=== PATIENT | female | born 1955 | race Caucasian/White ===

== ENCOUNTER 2022-11-01 20:20 | Emergency (ER) | payer BC ==
[2022-11-01] MEDS ORDERED: Naloxone 0.4 MG/ML SDV IVPUSH PRN (20:36)
[2022-11-01] MEDS: Lidocaine 4% 1 each Patch TOP ONE (20:38)
[2022-11-01] MEDS: Sodium Chloride 0.9% 10 ML Syringe FLUSH PRN (20:39)
[2022-11-01] MEDS: Morphine 2 MG/ML SYRINGE IVPUSH ONE (20:39)
[2022-11-01] MEDS: Ondansetron 4 MG/2 ML SDV IVPUSH ONE (20:39)
[2022-11-01] MEDS: Sodium Chloride 0.9% 2.5 ML Syringe FLUSH PRN (20:39)
[2022-11-01 21:00] LABS: BASOPHILS PERCENT AUTO 0.4 % (0.0-1.5); EOSINOPHILS ABSOLUTE AUTO 0.1 K/uL (0.0-0.7); EOSINOPHILS PERCENT AUTO 1.4 % (0.0-7.0); HEMOGLOBIN 12.1 g/dL (12.0-16.0); LYMPHOCYTES ABSOLUTE AUTO 1.9 K/uL (0.6-2.4); MEAN CORPUSCULAR HEMOGLOBIN 27.2 pg (27.0-32.0); MEAN CORPUSCULAR HGB CONC 31.8 g/dL (31.0-37.0); MEAN CORPUSCULAR VOLUME 85.4 fL (80.0-98.0); MONOCYTES ABSOLUTE AUTO 0.4 K/uL (0.0-0.8); MONOCYTES PERCENT AUTO 6.7 % (0.0-15.0); NEUTROPHILS ABSOLUTE AUTO 3.3 K/uL (1.4-5.7); NEUTROPHILS PERCENT AUTO 58.5 % (48.0-80.0); NRBC ABSOLUTE 0 K/uL; PLATELET COUNT,PLT 300 K/uL (150-400); RED BLOOD CELL COUNT 4.45 M/uL (4.30-5.90); WHITE BLOOD CELL COUNT,WBC 5.66 K/uL (4.0-11.0)
[2022-11-01 21:27] LABS: A/G RATIO 0.6 (0.9-1.6); ALBUMIN 2.9 g/dL (3.4-5.0); BILIRUBIN TOTAL 0.3 mg/dL (0.2-1.0); CALCIUM 8.9 mg/dL (8.5-10.1); CARBON DIOXIDE,CO2 30.6 mmol/L (21.0-32.0); CREATININE 0.8 mg/dL (0.6-1.0); EST CRCL DRUG DOSING (CG) 55.45 mL/min; POTASSIUM,K 3.9 mmol/L (3.5-5.1); PROTEIN TOTAL,TP 7.4 g/dL (6.4-8.2)
[2022-11-01] MEDS: Iopamidol 755 MG/ML 500 ML Multipack Bottle IVPUSH ONE (22:19)
[2022-11-01] MEDS: Ketorolac 30 MG/ML SDV IVPUSH ONE (23:07)
[2022-11-01] MEDS: Cyclobenzaprine 10 MG Tab PO ONE (23:08)
== END 2022-11-01 23:18 | disposition home or self-care (01) ==
LOC: MW.ED 20:20
DX: R07.89 Other chest pain (principal); I25.10 Atherosclerotic heart disease of native coronary artery without angina pectoris; E11.9 Type 2 diabetes mellitus without complications; Z79.84 Long term (current) use of oral hypoglycemic drugs; Z79.899 Other long term (current) drug therapy; Z88.0 Allergy status to penicillin; Z88.1 Allergy status to other antibiotic agents
CPT/HCPCS: 36415; 71275; 80053; 83690; 84484; 85025; 85379; 93005; 96374; 96375; 99285; A9270; J1885; J2270; J2405; J3490; Q9967; 93010; 99284

== ENCOUNTER 2022-11-02 22:04 | Emergency (ER) | payer BC ==
[2022-11-02] MEDS ORDERED: Sodium Chloride 0.9% 2.5 ML Syringe FLUSH PRN (22:13)
[2022-11-02] MEDS ORDERED: Sodium Chloride 0.9% 10 ML Syringe FLUSH PRN (22:13)
[2022-11-02] MEDS ORDERED: Cyclobenzaprine 10 MG Tab PO ONE (22:25)
[2022-11-02] MEDS ORDERED: Ketorolac 30 MG/ML SDV IVPUSH ONE (22:25)
[2022-11-02 22:59] LABS: BASOPHILS PERCENT AUTO 0.4 % (0.0-1.5); EOSINOPHILS ABSOLUTE AUTO 0.1 K/uL (0.0-0.7); EOSINOPHILS PERCENT AUTO 1.6 % (0.0-7.0); HEMATOCRIT 38.5 % (36.0-46.0); HEMOGLOBIN 12.1 g/dL (12.0-16.0); LYMPHOCYTES ABSOLUTE AUTO 1.7 K/uL (0.6-2.4); LYMPHOCYTES PERCENT AUTO 33.3 % (16.0-40.0); MEAN CORPUSCULAR HEMOGLOBIN 26.8 pg (27.0-32.0); MEAN CORPUSCULAR HGB CONC 31.4 g/dL (31.0-37.0); MEAN CORPUSCULAR VOLUME 85.4 fL (80.0-98.0); MONOCYTES ABSOLUTE AUTO 0.4 K/uL (0.0-0.8); MONOCYTES PERCENT AUTO 7.5 % (0.0-15.0); NEUTROPHILS ABSOLUTE AUTO 2.9 K/uL (1.4-5.7); NEUTROPHILS PERCENT AUTO 57.2 % (48.0-80.0); NRBC ABSOLUTE 0 K/uL; PLATELET COUNT,PLT 295 K/uL (150-400); RED BLOOD CELL COUNT 4.51 M/uL (4.30-5.90); WHITE BLOOD CELL COUNT,WBC 5.08 K/uL (4.0-11.0)
[2022-11-02 23:35] LABS: A/G RATIO 0.7 (0.9-1.6); BILIRUBIN TOTAL 0.4 mg/dL (0.2-1.0); CARBON DIOXIDE,CO2 31.5 mmol/L (21.0-32.0); CREATININE 0.9 mg/dL (0.6-1.0); EST CRCL DRUG DOSING (CG) 49.29 mL/min; MAGNESIUM 1.9 mg/dL (1.8-2.4); POTASSIUM,K 3.8 mmol/L (3.5-5.1); PROTEIN TOTAL,TP 7.1 g/dL (6.4-8.2)
== END 2022-11-03 00:29 | disposition home or self-care (01) ==
LOC: MW.ED 22:04
DX: R07.9 Chest pain, unspecified (principal); I25.10 Atherosclerotic heart disease of native coronary artery without angina pectoris; E11.9 Type 2 diabetes mellitus without complications; Z85.118 Personal history of other malignant neoplasm of bronchus and lung; Z88.0 Allergy status to penicillin; Z79.899 Other long term (current) drug therapy; Z79.84 Long term (current) use of oral hypoglycemic drugs
CPT/HCPCS: 36415; 80053; 83735; 84484; 85025; 93005; 96374; 99285; A9270; J1885; J3490; 93010; 99284

== ENCOUNTER 2022-12-01 21:04 | Emergency (ER) | payer BC ==
[2022-12-01] MEDS ORDERED: Sodium Chloride 0.9% 2.5 ML Syringe FLUSH PRN (21:34)
[2022-12-01] MEDS ORDERED: Sodium Chloride 0.9% 10 ML Syringe FLUSH PRN (21:34)
[2022-12-01 21:45] LABS: APPEARANCE,URINE CLOUDY; BILIRUBIN,URINE NEGATIVE (NEGATIVE); COLOR,URINE YELLOW; GLUCOSE,URINE 250 mg/dL (NEGATIVE); KETONES,URINE NEGATIVE (NEGATIVE); LEUKOCYTE ESTERASE,URINE MODERATE (NEGATIVE); NITRITE,URINE NEGATIVE (NEGATIVE); OCCULT BLOOD,URINE MODERATE (NEGATIVE); PH,URINE 7.5 (5.0-8.0); PROTEIN,URINE >=300 mg/dL (NEGATIVE)
[2022-12-01 21:46] LABS: BASOPHILS PERCENT AUTO 0.3 % (0.0-1.5); EOSINOPHILS ABSOLUTE AUTO 0.1 K/uL (0.0-0.7); HEMATOCRIT 38.7 % (36.0-46.0); LYMPHOCYTES ABSOLUTE AUTO 1.7 K/uL (0.6-2.4); LYMPHOCYTES PERCENT AUTO 21.9 % (16.0-40.0); MEAN CORPUSCULAR HEMOGLOBIN 26.6 pg (27.0-32.0); MEAN CORPUSCULAR VOLUME 85.8 fL (80.0-98.0); MONOCYTES ABSOLUTE AUTO 0.6 K/uL (0.0-0.8); NEUTROPHILS ABSOLUTE AUTO 5.5 K/uL (1.4-5.7); NEUTROPHILS PERCENT AUTO 69.8 % (48.0-80.0); NRBC ABSOLUTE 0 K/uL; PLATELET COUNT,PLT 325 K/uL (150-400); RED BLOOD CELL COUNT 4.51 M/uL (4.30-5.90); WHITE BLOOD CELL COUNT,WBC 7.82 K/uL (4.0-11.0)
[2022-12-01 21:52] LABS: EPITHELIAL CELLS,URINE RARE (NONE-FEW); WBC,URINE TO NUMEROUS TO COUNT (0-5/HPF)
[2022-12-01] MEDS ORDERED: Iopamidol 755 MG/ML 500 ML Multipack Bottle IVPUSH ONE (21:52)
[2022-12-01 21:53] LABS: BACTERIA,URINE 2+ (NEGATIVE); YEAST,URINE FEW
[2022-12-01 22:07] LABS: A/G RATIO 0.6 (0.9-1.6); ALBUMIN 2.9 g/dL (3.4-5.0); BILIRUBIN TOTAL 0.3 mg/dL (0.2-1.0); CARBON DIOXIDE,CO2 30.3 mmol/L (21.0-32.0); CREATININE 1.1 mg/dL (0.6-1.0); EST CRCL DRUG DOSING (CG) 40.33 mL/min; MAGNESIUM 2.1 mg/dL (1.8-2.4); PROTEIN TOTAL,TP 7.6 g/dL (6.4-8.2)
[2022-12-01 22:23] LABS: CORONAVIRUS COVID-19 NAA NEGATIVE (NEGATIVE); INFLUENZA A NAA NEGATIVE (NEGATIVE); INFLUENZA B NAA NEGATIVE (NEGATIVE); RESPIRATORY SYNCYTIAL VIR NAA NEGATIVE (NEGATIVE)
[2022-12-02] MEDS ORDERED: Levofloxacin/Dextrose 5%-Water 750 MG in Premix Bag 1 BAG IV ONE (00:13)
[2022-12-02] MEDS ORDERED: Morphine 2 MG/ML SYRINGE IVPUSH ONE (00:36)
[2022-12-02] MEDS ORDERED: Naloxone 0.4 MG/ML SDV IVPUSH PRN (00:36)
== END 2022-12-02 01:50 | disposition home or self-care (01) ==
LOC: MW.ED 21:04
DX: N39.0 Urinary tract infection, site not specified (principal); I25.10 Atherosclerotic heart disease of native coronary artery without angina pectoris; E11.9 Type 2 diabetes mellitus without complications; Z88.0 Allergy status to penicillin; Z79.899 Other long term (current) drug therapy; Z79.84 Long term (current) use of oral hypoglycemic drugs; Z90.49 Acquired absence of other specified parts of digestive tract; Z20.822 Contact with and (suspected) exposure to COVID-19
CPT/HCPCS: 0241U; 36415; 51798; 71046; 72132; 74177; 80053; 81001; 83735; 85025; 87040; 87086; 87088; 87186; 96365; 96375; 99284; J1956; J2270; J3490; Q9967

== ENCOUNTER 2022-12-05 19:55 | Emergency (ER) | payer BC, MEDICARE ==
[2022-12-05] MEDS ORDERED: Sodium Chloride 0.9% 1,000 ML IV ONE (20:39)
[2022-12-05] MEDS ORDERED: Ondansetron 4 MG/2 ML SDV IVPUSH ONE (20:39)
[2022-12-05 21:05] LABS: HEMATOCRIT 41.2 % (36.0-46.0); HEMOGLOBIN 13.3 g/dL (12.0-16.0); MEAN CORPUSCULAR HGB CONC 32.3 g/dL (31.0-37.0); MEAN CORPUSCULAR VOLUME 83.6 fL (80.0-98.0); NRBC ABSOLUTE 0 K/uL; PLATELET COUNT,PLT 422 K/uL (150-400); RED BLOOD CELL COUNT 4.93 M/uL (4.30-5.90); WHITE BLOOD CELL COUNT,WBC 7.54 K/uL (4.0-11.0)
[2022-12-05 21:24] LABS: A/G RATIO 0.7 (0.9-1.6); ALBUMIN 3.6 g/dL (3.4-5.0); BILIRUBIN TOTAL 0.5 mg/dL (0.2-1.0); CARBON DIOXIDE,CO2 28.5 mmol/L (21.0-32.0); EST CRCL DRUG DOSING (CG) 44.36 mL/min; POTASSIUM,K 4.2 mmol/L (3.5-5.1); PROTEIN TOTAL,TP 8.8 g/dL (6.4-8.2)
[2022-12-05 21:49] LABS: BAND ABSOLUTE MAN 0.6; BAND PERCENT MAN 8 %; LYMPHOCYTES % ATYPICAL MANUAL 1; LYMPHOCYTES ABSOLUTE MAN 2.1 (0.6-2.4); LYMPHOCYTES PERCENT MAN 28 % (16.0-40.0); SEG NEUTROPHILS ABSOLUTE MAN 4.8 (1.4-5.7); SEG NEUTROPHILS PERCENT MAN 63 % (48.0-80.0)
== END 2022-12-05 22:45 | disposition home or self-care (01) ==
LOC: MW.ED 19:55
DX: E86.0 Dehydration (principal); R11.2 Nausea with vomiting, unspecified; I25.10 Atherosclerotic heart disease of native coronary artery without angina pectoris; E11.9 Type 2 diabetes mellitus without complications; Z88.0 Allergy status to penicillin; Z88.1 Allergy status to other antibiotic agents; Z79.899 Other long term (current) drug therapy; Z79.84 Long term (current) use of oral hypoglycemic drugs
CPT/HCPCS: 36415; 80053; 85025; 96361; 96374; 99284; J2405; J7030

== ENCOUNTER 2023-06-17 15:50 | Observation (INO) | payer BC ==
[2023-06-17] MEDS: oxyCODONE 5 MG Tab PO ONE (16:28)
[2023-06-17] MEDS: Sodium Chloride 0.9% 2.5 ML Syringe FLUSH PRN (16:29)
[2023-06-17] MEDS: Sodium Chloride 0.9% 10 ML Syringe FLUSH PRN (16:29)
[2023-06-17 16:39] LABS: BASOPHILS ABSOLUTE AUTO 0.01 K/uL (0.00-0.20); BASOPHILS PERCENT AUTO 0.3 % (0.0-1.0); EOSINOPHILS ABSOLUTE AUTO 0.01 K/uL (0.00-0.45); EOSINOPHILS PERCENT AUTO 0.3 % (0.0-6.0); HEMOGLOBIN 9.6 g/dL (12.0-16.0); IMMATURE GRAN ABSOLUTE AUTO 0.03 K/uL (0.00-0.05); LYMPHOCYTES PERCENT AUTO 37.8 % (24.0-44.0); MEAN CORPUSCULAR VOLUME 81.3 fL (83.0-99.0); MEAN PLATELET VOLUME 10.1 fL (9.4-12.3); MONOCYTES ABSOLUTE AUTO 0.38 K/uL (0.00-0.80); MONOCYTES PERCENT AUTO 13.1 % (0.0-8.0); NEUTROPHILS ABSOLUTE AUTO 1.38 K/uL (1.80-7.70); NEUTROPHILS PERCENT AUTO 47.5 % (41.0-71.0); PLATELET COUNT,PLT 261 K/uL (150-400); RED BLOOD CELL COUNT 3.69 M/uL (4.10-5.30); WHITE BLOOD CELL COUNT,WBC 2.91 K/uL (3.9-11.3)
[2023-06-17 17:09] LABS: A/G RATIO 0.6 (0.9-1.6); ALANINE AMINOTRANSFERASE,ALT 14 IU/L (14-63); ALBUMIN 2.4 g/dL (3.4-5.0); ALKALINE PHOSPHATASE 89 U/L (46-116); ASPARTATE AMNIOTRANSFERASE,AST 11 IU/L (15-37); BILIRUBIN TOTAL 0.2 mg/dL (0.2-1.0); BLOOD UREA NITROGEN,BUN 10 mg/dL (7.0-18.0); CARBON DIOXIDE,CO2 29.8 mmol/L (21.0-32.0); CHLORIDE,CL 99 mmol/L (98-107); CREATININE 0.6 mg/dL (0.6-1.0); EST CRCL DRUG DOSING (CG) 73.93 mL/min; GLUCOSE RANDOM 231 mg/dL (74-106); POTASSIUM,K 3.4 mmol/L (3.5-5.1); PROTEIN TOTAL,TP 6.3 g/dL (6.4-8.2); SODIUM,NA 134 mmol/L (136-145)
[2023-06-17 17:11] LABS: ESTIMATED GFR 100 mL/min (>60)
[2023-06-17 17:13] LABS: LACTIC ACID 1.4 mmol/L (0.4-2.0)
[2023-06-17] MEDS: Sodium Chloride 0.9% 1,000 ML IV STA (17:20)
[2023-06-17 17:53] LABS: APPEARANCE,URINE CLEAR; BILIRUBIN,URINE NEGATIVE (NEGATIVE); COLOR,URINE YELLOW; GLUCOSE,URINE 500 mg/dL (NEGATIVE); KETONES,URINE NEGATIVE (NEGATIVE); LEUKOCYTE ESTERASE,URINE NEGATIVE (NEGATIVE); NITRITE,URINE NEGATIVE (NEGATIVE); OCCULT BLOOD,URINE NEGATIVE (NEGATIVE); PROTEIN,URINE NEGATIVE (NEGATIVE)
[2023-06-17] MEDS: Magnesium Sulfate/Water 2 GM in Premix Bag 1 BAG IV ONE (18:21)
[2023-06-17] MEDS: Potassium Chloride 10% 20 MEQ/15 ML Soln 15 ML UD Cup PO ONE (18:52)
[2023-06-17] MEDS ORDERED: Sennosides 8.6 MG Tab PO PRN (22:17)
[2023-06-17] MEDS ORDERED: oxyCODONE 5 MG Tab PO PRN (22:17)
[2023-06-17] MEDS: Apixaban 5 MG Tab PO SCH (23:28)
[2023-06-17] MEDS: Sodium Chloride 0.9% 1,000 ML IV SCH (23:30)
[2023-06-18 05:46] LABS: HEMATOCRIT 28.5 % (37.0-47.0); HEMOGLOBIN 8.6 g/dL (12.0-16.0); IMMATURE GRAN ABSOLUTE AUTO 0.03 K/uL (0.00-0.05); IMMATURE GRAN PERCENT AUTO 1.1 % (0.0-0.4); LYMPHOCYTES ABSOLUTE AUTO 0.97 K/uL (1.00-4.80); LYMPHOCYTES PERCENT AUTO 36.2 % (24.0-44.0); MEAN CORPUSCULAR HEMOGLOBIN 25.3 pg (28.0-32.0); MEAN CORPUSCULAR HGB CONC 30.2 g/dL (32.0-36.0); MEAN CORPUSCULAR VOLUME 83.8 fL (83.0-99.0); MEAN PLATELET VOLUME 10.1 fL (9.4-12.3); MONOCYTES ABSOLUTE AUTO 0.45 K/uL (0.00-0.80); MONOCYTES PERCENT AUTO 16.8 % (0.0-8.0); NEUTROPHILS ABSOLUTE AUTO 1.23 K/uL (1.80-7.70); NEUTROPHILS PERCENT AUTO 45.9 % (41.0-71.0); PLATELET COUNT,PLT 241 K/uL (150-400); WHITE BLOOD CELL COUNT,WBC 2.68 K/uL (3.9-11.3)
[2023-06-18 06:07] LABS: A/G RATIO 0.6 (0.9-1.6); ALBUMIN 2.1 g/dL (3.4-5.0); BILIRUBIN TOTAL 0.2 mg/dL (0.2-1.0); CALCIUM 8.1 mg/dL (8.5-10.1); CARBON DIOXIDE,CO2 26.3 mmol/L (21.0-32.0); CREATININE 0.5 mg/dL (0.6-1.0); EST CRCL DRUG DOSING (CG) 88.72 mL/min; POTASSIUM,K 3.8 mmol/L (3.5-5.1); PROTEIN TOTAL,TP 5.5 g/dL (6.4-8.2)
[2023-06-18] MEDS: Levothyroxine 88 MCG Tab PO SCH (06:39)
[2023-06-18] MEDS: oxyCODONE 5 MG Tab PO PRN (07:24)
[2023-06-18] MEDS: TRELEGY ELLIPTA INH SCH (08:05)
[2023-06-18] MEDS ORDERED: 50% Dextrose in Water 50 ML Syringe IVPUSH PRN (08:13)
[2023-06-18] MEDS ORDERED: Glucagon,Human Recombinant 1 MG Vial IM PRN (08:13)
[2023-06-18] MEDS: Ondansetron 4 MG/2 ML SDV IVPUSH PRN (08:56)
[2023-06-18] MEDS ORDERED: busPIRone 5 MG Tab PO SCH (09:00)
[2023-06-18] MEDS ORDERED: Sennosides 8.6 MG Tab PO PRN (10:00)
[2023-06-18] MEDS: atorvaSTATin 20 MG Tab PO SCH (11:30)
[2023-06-18] MEDS: Insulin Aspart 100 Units/ML 3 ML Pen SUBCUT SCH (11:48)
[2023-06-18] MEDS ORDERED: atorvaSTATin 20 MG Tab PO SCH (18:00)
[2023-06-19] MEDS ORDERED: Levothyroxine 88 MCG Tab PO SCH (06:30)
== END 2023-06-18 13:45 | disposition home or self-care (01) ==
LOC: MW.ED 15:50 → MW.MS 18:35
PROVIDERS: ADMIT Internal Medicine; ATTEND Internal Medicine
DX: E86.1 Hypovolemia (principal); T45.1X5A Adverse effect of antineoplastic and immunosuppressive drugs, initial encounter; C34.90 Malignant neoplasm of unspecified part of unspecified bronchus or lung; I10 Essential (primary) hypertension; E78.00 Pure hypercholesterolemia, unspecified; E11.9 Type 2 diabetes mellitus without complications; F32.A Depression, unspecified; F41.9 Anxiety disorder, unspecified; Z79.890 Hormone replacement therapy; Z79.899 Other long term (current) drug therapy; Z79.84 Long term (current) use of oral hypoglycemic drugs
CPT/HCPCS: 36415; 70450; 71045; 80053; 81003; 82947; 83605; 83735; 84145; 84484; 85025; 87040; 93005; 96361; 96365; 97162; 99285; A9270; J2405; J3475; J3490; J7030; 93010; 96366; 96375; 99283; G0378

== ENCOUNTER 2023-08-10 00:18 | Emergency (ER) | payer BC ==
[2023-08-10] MEDS: Sodium Chloride 0.9% 1,000 ML IV STA (00:57)
[2023-08-10] MEDS: Sodium Chloride 0.9% 2.5 ML Syringe FLUSH PRN (00:58)
[2023-08-10] MEDS: Sodium Chloride 0.9% 10 ML Syringe FLUSH PRN (00:59)
[2023-08-10 01:02] LABS: BASOPHILS ABSOLUTE AUTO 0.01 K/uL (0.00-0.20); BASOPHILS PERCENT AUTO 0.2 % (0.0-1.0); HEMOGLOBIN 9.6 g/dL (12.0-16.0); IMMATURE GRAN ABSOLUTE AUTO 0.05 K/uL (0.00-0.05); IMMATURE GRAN PERCENT AUTO 0.8 % (0.0-0.4); LYMPHOCYTES ABSOLUTE AUTO 0.61 K/uL (1.00-4.80); LYMPHOCYTES PERCENT AUTO 9.4 % (24.0-44.0); MEAN CORPUSCULAR HEMOGLOBIN 27.4 pg (28.0-32.0); MEAN CORPUSCULAR VOLUME 85.7 fL (83.0-99.0); MONOCYTES ABSOLUTE AUTO 0.32 K/uL (0.00-0.80); MONOCYTES PERCENT AUTO 4.9 % (0.0-8.0); NEUTROPHILS ABSOLUTE AUTO 5.49 K/uL (1.80-7.70); NEUTROPHILS PERCENT AUTO 84.7 % (41.0-71.0); NRBC ABSOLUTE 0.02 K/uL (0.00-0.02); NRBC PERCENT 0.3 /100WBC (0.0-0.2); PLATELET COUNT,PLT 412 K/uL (150-400); WHITE BLOOD CELL COUNT,WBC 6.48 K/uL (3.9-11.3)
[2023-08-10 01:26] LABS: A/G RATIO 0.6 (0.9-1.6); ALBUMIN 2.6 g/dL (3.4-5.0); BILIRUBIN TOTAL 0.4 mg/dL (0.2-1.0); CARBON DIOXIDE,CO2 29.1 mmol/L (21.0-32.0); CREATININE 0.8 mg/dL (0.6-1.0); EST CRCL DRUG DOSING (CG) 52.01 mL/min; POTASSIUM,K 3.7 mmol/L (3.5-5.1); PROTEIN TOTAL,TP 6.7 g/dL (6.4-8.2)
[2023-08-10 01:43] LABS: LACTIC ACID 1.5 mmol/L (0.4-2.0)
[2023-08-10] MEDS: Iopamidol 755 MG/ML 500 ML Multipack Bottle IVPUSH STA (01:57)
[2023-08-10] MEDS: Lidocaine 2% 11 ML Jelly Filled Syringe MUCMEM ONE (03:17)
== END 2023-08-10 03:30 | disposition home or self-care (01) ==
LOC: MW.ED 00:18
DX: K59.00 Constipation, unspecified (principal); I10 Essential (primary) hypertension; E78.00 Pure hypercholesterolemia, unspecified; E11.9 Type 2 diabetes mellitus without complications; Z88.0 Allergy status to penicillin; Z79.899 Other long term (current) drug therapy; Z79.890 Hormone replacement therapy; Z79.01 Long term (current) use of anticoagulants; Z90.49 Acquired absence of other specified parts of digestive tract; Z75.8 Other problems related to medical facilities and other health care
CPT/HCPCS: 36415; 74177; 80053; 83605; 83690; 85025; 96360; 96361; 99284; J3490; J7030; Q9967

== ENCOUNTER 2024-02-13 21:12 | Emergency (ER) | payer BC ==
[2024-02-13] MEDS: Prochlorperazine 10 MG/2 ML SDV IVPUSH ONE (22:39)
[2024-02-13 22:50] LABS: BASOPHILS ABSOLUTE AUTO 0.01 K/uL (0.00-0.20); BASOPHILS PERCENT AUTO 0.1 % (0.0-1.0); EOSINOPHILS ABSOLUTE AUTO 0.01 K/uL (0.00-0.45); EOSINOPHILS PERCENT AUTO 0.1 % (0.0-6.0); HEMATOCRIT 34.3 % (37.0-47.0); HEMOGLOBIN 11.1 g/dL (12.0-16.0); IMMATURE GRAN ABSOLUTE AUTO 0.19 K/uL (0.00-0.05); IMMATURE GRAN PERCENT AUTO 1.4 % (0.0-0.4); LYMPHOCYTES ABSOLUTE AUTO 0.52 K/uL (1.00-4.80); MEAN CORPUSCULAR HEMOGLOBIN 26.6 pg (28.0-32.0); MEAN CORPUSCULAR HGB CONC 32.4 g/dL (32.0-36.0); MEAN CORPUSCULAR VOLUME 82.1 fL (83.0-99.0); MEAN PLATELET VOLUME 11.4 fL (9.4-12.3); MONOCYTES ABSOLUTE AUTO 0.22 K/uL (0.00-0.80); MONOCYTES PERCENT AUTO 1.7 % (0.0-8.0); NEUTROPHILS ABSOLUTE AUTO 12.16 K/uL (1.80-7.70); NEUTROPHILS PERCENT AUTO 92.7 % (41.0-71.0); NRBC ABSOLUTE 0.02 K/uL (0.00-0.02); NRBC PERCENT 0.2 /100WBC (0.0-0.2); PLATELET COUNT,PLT 269 K/uL (150-400); RED BLOOD CELL COUNT 4.18 M/uL (4.10-5.30); WHITE BLOOD CELL COUNT,WBC 13.11 K/uL (3.9-11.3)
[2024-02-13 23:06] LABS: BLOOD UREA NITROGEN,BUN 18 mg/dL (7.0-18.0); CALCIUM 9.9 mg/dL (8.5-10.1); CARBON DIOXIDE,CO2 28.1 mmol/L (21.0-32.0); CHLORIDE,CL 105 mmol/L (98-107); CREATININE 0.7 mg/dL (0.6-1.0); GLUCOSE RANDOM 238 mg/dL (74-106); POTASSIUM,K 3.1 mmol/L (3.5-5.1); SODIUM,NA 143 mmol/L (136-145)
[2024-02-13 23:24] LABS: ESTIMATED GFR 95 mL/min (>60)
[2024-02-14] MEDS: Potassium Chloride 20 MEQ Tab.ER PO ONE (00:25)
[2024-02-14] MEDS: Metoclopramide 10 MG/2 ML SDV IVPUSH ONE (00:42)
[2024-02-14] MEDS: Potassium Chloride 10% 20 MEQ/15 ML Soln 15 ML UD Cup PO ONE (01:02)
[2024-02-14] MEDS: Potassium Chloride 10% 20 MEQ/15 ML Soln 15 ML UD Cup PO SCH (01:05)
== END 2024-02-14 02:10 | disposition home or self-care (01) ==
LOC: MW.ED 21:12
DX: R11.2 Nausea with vomiting, unspecified (principal); I10 Essential (primary) hypertension; E78.00 Pure hypercholesterolemia, unspecified; E11.9 Type 2 diabetes mellitus without complications; Z90.49 Acquired absence of other specified parts of digestive tract; Z79.899 Other long term (current) drug therapy; Z79.01 Long term (current) use of anticoagulants; Z79.52 Long term (current) use of systemic steroids; Z79.890 Hormone replacement therapy; Z88.0 Allergy status to penicillin; Z79.85 Long-term (current) use of injectable non-insulin antidiabetic drugs
CPT/HCPCS: 36415; 71046; 80048; 85025; 96374; 96375; 99285; A9270; J0780; J2765; 93010; 99283

== ENCOUNTER 2024-02-20 17:58 | Inpatient (IN) | payer BC, MEDICARE ==
[2024-02-20] MEDS ORDERED: Sodium Chloride 0.9% 20 ML SDV IV PRN (18:02)
[2024-02-20 18:39] LABS: BASE EXCESS VENOUS 7.2 (-2.0-3.0); BICARBONATE,VENOUS 33 mEQ/mL (22-28); PCO2 VENOUS 49 mmHG (41-51); PH,VENOUS 7.43 (7.31-7.41)
[2024-02-20] MEDS: Iopamidol 755 MG/ML 500 ML Multipack Bottle IVPUSH STA (18:42)
[2024-02-20 18:48] LABS: PO2 VENOUS < 30 mmHG (35-45)
[2024-02-20 18:52] LABS: HEMATOCRIT 32.9 % (37.0-47.0); HEMOGLOBIN 10.4 g/dL (12.0-16.0); MEAN CORPUSCULAR HEMOGLOBIN 26.7 pg (28.0-32.0); MEAN CORPUSCULAR HGB CONC 31.6 g/dL (32.0-36.0); MEAN CORPUSCULAR VOLUME 84.6 fL (83.0-99.0); MEAN PLATELET VOLUME 10.5 fL (9.4-12.3); PLATELET COUNT,PLT 292 K/uL (150-400); RED BLOOD CELL COUNT 3.89 M/uL (4.10-5.30); WHITE BLOOD CELL COUNT,WBC 1.73 K/uL (3.9-11.3)
[2024-02-20 19:16] LABS: A/G RATIO 0.5 (0.9-1.6); ALBUMIN 2.1 g/dL (3.4-5.0); BILIRUBIN TOTAL 0.4 mg/dL (0.2-1.0); CALCIUM 9.3 mg/dL (8.5-10.1); CARBON DIOXIDE,CO2 32.4 mmol/L (21.0-32.0); CREATININE 0.8 mg/dL (0.6-1.0); EST CRCL DRUG DOSING (CG) 52.01 mL/min; PROTEIN TOTAL,TP 6.4 g/dL (6.4-8.2)
[2024-02-20 19:23] LABS: BAND ABSOLUTE MAN 0.02; BAND PERCENT MAN 1 %; SEG NEUTROPHILS ABSOLUTE MAN 0.29 K/uL (1.80-7.70); SEG NEUTROPHILS PERCENT MAN 17 % (41-71)
[2024-02-20 19:24] LABS: LYMPHOCYTES ABSOLUTE MAN 1.11 K/uL (1.00-4.80); LYMPHOCYTES PERCENT MAN 64 % (24-44); MONOCYTES ABSOLUTE MAN 0.31 K/uL (0.00-0.80); MONOCYTES PERCENT MAN 18 % (0-8)
[2024-02-20] MEDS: Sodium Chloride 0.9% 1,000 ML IV STA (19:28)
[2024-02-20] MEDS: Cefepime 2 GM in Sodium Chloride 0.9% 50 ML IV STA (20:07)
[2024-02-20] MEDS ORDERED: Sennosides 8.6 MG Tab PO PRN (23:33)
[2024-02-20] MEDS ORDERED: 50% Dextrose in Water 50 ML Syringe IVPUSH PRN (23:38)
[2024-02-20] MEDS ORDERED: Glucagon,Human Recombinant 1 MG Vial IM PRN (23:38)
[2024-02-20 23:51] LABS: CORONAVIRUS COVID-19 NAA NEGATIVE (NEGATIVE); INFLUENZA A NAA NEGATIVE (NEGATIVE); INFLUENZA B NAA NEGATIVE (NEGATIVE)
[2024-02-21] MEDS: HYDROmorphone 2 MG Tab PO PRN (00:29)
[2024-02-21] MEDS: Apixaban 5 MG Tab PO SCH (00:29)
[2024-02-21] MEDS: Azithromycin 500 MG in Sodium Chloride 0.9% 250 ML IV SCH (00:32)
[2024-02-21 05:52] LABS: HEMATOCRIT 29.2 % (37.0-47.0); MEAN CORPUSCULAR HEMOGLOBIN 26.3 pg (28.0-32.0); MEAN CORPUSCULAR HGB CONC 30.8 g/dL (32.0-36.0); MEAN CORPUSCULAR VOLUME 85.4 fL (83.0-99.0); MEAN PLATELET VOLUME 10.3 fL (9.4-12.3); PLATELET COUNT,PLT 252 K/uL (150-400); RED BLOOD CELL COUNT 3.42 M/uL (4.10-5.30); WHITE BLOOD CELL COUNT,WBC 1.52 K/uL (3.9-11.3)
[2024-02-21 06:14] LABS: CALCIUM 8.7 mg/dL (8.5-10.1); CARBON DIOXIDE,CO2 31.1 mmol/L (21.0-32.0); CREATININE 0.7 mg/dL (0.6-1.0); EST CRCL DRUG DOSING (CG) 56.16 mL/min; POTASSIUM,K 4.2 mmol/L (3.5-5.1)
[2024-02-21 06:15] LABS: BAND ABSOLUTE MAN 0.03; BAND PERCENT MAN 2 %; MONOCYTES ABSOLUTE MAN 0.24 K/uL (0.00-0.80); MONOCYTES PERCENT MAN 16 % (0-8); SEG NEUTROPHILS ABSOLUTE MAN 0.29 K/uL (1.80-7.70); SEG NEUTROPHILS PERCENT MAN 19 % (41-71)
[2024-02-21 06:16] LABS: LYMPHOCYTES ABSOLUTE MAN 0.96 K/uL (1.00-4.80); LYMPHOCYTES PERCENT MAN 63 % (24-44)
[2024-02-21] MEDS: Insulin Aspart 100 Units/ML 3 ML Pen SUBCUT SCH (08:15)
[2024-02-21] MEDS: Cefepime 2 GM in Sodium Chloride 0.9% 50 ML IV SCH (08:16)
[2024-02-21] MEDS: Albuterol/Ipratropium 3.0-0.5 MG/3 ML Neb Soln NEB PRN (08:53)
[2024-02-21] MEDS ORDERED: FLU (Fluad Triv) TS24-25 (65UP)/MF59C/PF 45 MCG/0.5 ML Syringe IM ONE (09:00)
[2024-02-21 10:10] LABS: APPEARANCE,URINE CLEAR; BILIRUBIN,URINE NEGATIVE (NEGATIVE); COLOR,URINE YELLOW; GLUCOSE,URINE NEGATIVE (NEGATIVE); KETONES,URINE NEGATIVE (NEGATIVE); LEUKOCYTE ESTERASE,URINE NEGATIVE (NEGATIVE); NITRITE,URINE NEGATIVE (NEGATIVE); OCCULT BLOOD,URINE NEGATIVE (NEGATIVE); PH,URINE 5.5 (5.0-8.0); PROTEIN,URINE NEGATIVE (NEGATIVE); UROBILINOGEN,URINE 0.2 EU/dL (<2.0)
[2024-02-21] MEDS: Sennosides 8.6 MG Tab PO PRN (10:41)
[2024-02-22 06:17] LABS: HEMATOCRIT 28.8 % (37.0-47.0); HEMOGLOBIN 9.2 g/dL (12.0-16.0); MEAN CORPUSCULAR HEMOGLOBIN 26.6 pg (28.0-32.0); MEAN CORPUSCULAR HGB CONC 31.9 g/dL (32.0-36.0); MEAN CORPUSCULAR VOLUME 83.2 fL (83.0-99.0); PLATELET COUNT,PLT 300 K/uL (150-400); RED BLOOD CELL COUNT 3.46 M/uL (4.10-5.30); WHITE BLOOD CELL COUNT,WBC 3.12 K/uL (3.9-11.3)
[2024-02-22 06:40] LABS: A/G RATIO 0.5 (0.9-1.6); ALBUMIN 1.9 g/dL (3.4-5.0); BILIRUBIN TOTAL 0.4 mg/dL (0.2-1.0); CALCIUM 8.7 mg/dL (8.5-10.1); CARBON DIOXIDE,CO2 28.9 mmol/L (21.0-32.0); CREATININE 0.6 mg/dL (0.6-1.0); EST CRCL DRUG DOSING (CG) 65.52 mL/min; POTASSIUM,K 3.5 mmol/L (3.5-5.1); PROTEIN TOTAL,TP 5.7 g/dL (6.4-8.2)
[2024-02-22 06:47] LABS: BAND ABSOLUTE MAN 0.12; BAND PERCENT MAN 4 %; SEG NEUTROPHILS PERCENT MAN 45 % (41-71)
[2024-02-22 06:48] LABS: LYMPHOCYTES ABSOLUTE MAN 1.22 K/uL (1.00-4.80); LYMPHOCYTES PERCENT MAN 39 % (24-44); MONOCYTES ABSOLUTE MAN 0.37 K/uL (0.00-0.80); MONOCYTES PERCENT MAN 12 % (0-8)
[2024-02-22] MEDS: Lisinopril 5 MG Tab PO SCH (12:32)
[2024-02-22] MEDS: Acetaminophen 325 MG Tab PO PRN (20:17)
[2024-02-23 06:01] LABS: BASOPHILS ABSOLUTE AUTO 0.01 K/uL (0.00-0.20); BASOPHILS PERCENT AUTO 0.3 % (0.0-1.0); EOSINOPHILS ABSOLUTE AUTO 0.01 K/uL (0.00-0.45); EOSINOPHILS PERCENT AUTO 0.3 % (0.0-6.0); HEMATOCRIT 27.6 % (37.0-47.0); HEMOGLOBIN 8.6 g/dL (12.0-16.0); IMMATURE GRAN ABSOLUTE AUTO 0.16 K/uL (0.00-0.05); IMMATURE GRAN PERCENT AUTO 4.5 % (0.0-0.4); LYMPHOCYTES ABSOLUTE AUTO 0.63 K/uL (1.00-4.80); LYMPHOCYTES PERCENT AUTO 17.8 % (24.0-44.0); MEAN CORPUSCULAR HEMOGLOBIN 26.5 pg (28.0-32.0); MEAN CORPUSCULAR HGB CONC 31.2 g/dL (32.0-36.0); MEAN CORPUSCULAR VOLUME 84.9 fL (83.0-99.0); MEAN PLATELET VOLUME 10.4 fL (9.4-12.3); MONOCYTES ABSOLUTE AUTO 0.53 K/uL (0.00-0.80); NEUTROPHILS PERCENT AUTO 62.1 % (41.0-71.0); PLATELET COUNT,PLT 304 K/uL (150-400); RED BLOOD CELL COUNT 3.25 M/uL (4.10-5.30); WHITE BLOOD CELL COUNT,WBC 3.54 K/uL (3.9-11.3)
[2024-02-23 06:27] LABS: A/G RATIO 0.5 (0.9-1.6); ALBUMIN 1.7 g/dL (3.4-5.0); BILIRUBIN TOTAL 0.3 mg/dL (0.2-1.0); CALCIUM 8.4 mg/dL (8.5-10.1); CARBON DIOXIDE,CO2 32.2 mmol/L (21.0-32.0); CREATININE 0.6 mg/dL (0.6-1.0); EST CRCL DRUG DOSING (CG) 65.52 mL/min; POTASSIUM,K 3.1 mmol/L (3.5-5.1); PROTEIN TOTAL,TP 5.2 g/dL (6.4-8.2)
[2024-02-23] MEDS: Potassium Chloride 20 MEQ Tab.ER PO ONE (09:14)
[2024-02-24 05:28] LABS: HEMATOCRIT 26.7 % (37.0-47.0); HEMOGLOBIN 8.3 g/dL (12.0-16.0); MEAN CORPUSCULAR HEMOGLOBIN 26.5 pg (28.0-32.0); MEAN CORPUSCULAR HGB CONC 31.1 g/dL (32.0-36.0); MEAN CORPUSCULAR VOLUME 85.3 fL (83.0-99.0); MEAN PLATELET VOLUME 10.1 fL (9.4-12.3); PLATELET COUNT,PLT 340 K/uL (150-400); RED BLOOD CELL COUNT 3.13 M/uL (4.10-5.30); WHITE BLOOD CELL COUNT,WBC 4.53 K/uL (3.9-11.3)
[2024-02-24 05:56] LABS: A/G RATIO 0.5 (0.9-1.6); ALBUMIN 1.8 g/dL (3.4-5.0); BILIRUBIN TOTAL 0.2 mg/dL (0.2-1.0); CALCIUM 8.8 mg/dL (8.5-10.1); CARBON DIOXIDE,CO2 30.9 mmol/L (21.0-32.0); CREATININE 0.6 mg/dL (0.6-1.0); EST CRCL DRUG DOSING (CG) 65.52 mL/min; POTASSIUM,K 3.9 mmol/L (3.5-5.1); PROTEIN TOTAL,TP 5.5 g/dL (6.4-8.2)
[2024-02-24 06:10] LABS: BAND ABSOLUTE MAN 0.23; BAND PERCENT MAN 5 %; LYMPHOCYTES ABSOLUTE MAN 0.72 K/uL (1.00-4.80); LYMPHOCYTES PERCENT MAN 16 % (24-44); METAMYELOCYTE ABSOLUTE MAN 0.09; METAMYELOCYTE PERCENT MAN 2 %; MONOCYTES ABSOLUTE MAN 0.41 K/uL (0.00-0.80); MONOCYTES PERCENT MAN 9 % (0-8); MYELOCYTE ABSOLUTE MAN 0.18; MYELOCYTE PERCENT MAN 4 %; SEG NEUTROPHILS PERCENT MAN 64 % (41-71)
[2024-02-24 06:11] LABS: ATYPICAL LYMPHOCYTES FEW
[2024-02-25 05:50] LABS: HEMATOCRIT 28.1 % (37.0-47.0); HEMOGLOBIN 8.5 g/dL (12.0-16.0); MEAN CORPUSCULAR HEMOGLOBIN 25.9 pg (28.0-32.0); MEAN CORPUSCULAR HGB CONC 30.2 g/dL (32.0-36.0); MEAN CORPUSCULAR VOLUME 85.7 fL (83.0-99.0); MEAN PLATELET VOLUME 9.9 fL (9.4-12.3); PLATELET COUNT,PLT 351 K/uL (150-400); RED BLOOD CELL COUNT 3.28 M/uL (4.10-5.30)
[2024-02-25 06:14] LABS: A/G RATIO 0.5 (0.9-1.6); ALBUMIN 1.7 g/dL (3.4-5.0); BILIRUBIN TOTAL 0.3 mg/dL (0.2-1.0); CALCIUM 8.6 mg/dL (8.5-10.1); CARBON DIOXIDE,CO2 28.2 mmol/L (21.0-32.0); CREATININE 0.5 mg/dL (0.6-1.0); EST CRCL DRUG DOSING (CG) 78.63 mL/min; POTASSIUM,K 3.1 mmol/L (3.5-5.1); PROTEIN TOTAL,TP 5.3 g/dL (6.4-8.2)
[2024-02-25] MEDS: Escitalopram 10 MG Tab PO SCH (06:45)
[2024-02-25 07:06] LABS: SEG NEUTROPHILS ABSOLUTE MAN 4.84 K/uL (1.80-7.70); SEG NEUTROPHILS PERCENT MAN 82 % (41-71)
[2024-02-25 07:07] LABS: LYMPHOCYTES ABSOLUTE MAN 0.41 K/uL (1.00-4.80); LYMPHOCYTES PERCENT MAN 7 % (24-44); METAMYELOCYTE ABSOLUTE MAN 0.06; METAMYELOCYTE PERCENT MAN 1 %; MONOCYTES ABSOLUTE MAN 0.59 K/uL (0.00-0.80); MONOCYTES PERCENT MAN 10 % (0-8)
[2024-02-25] MEDS: Potassium Chloride 20 MEQ Tab.ER PO ONE (08:53)
== END 2024-02-25 12:45 | disposition home or self-care (01) | DRG 139 ==
LOC: MW.ED 17:58 → MW.MS 20:00
PROVIDERS: ADMIT Internal Medicine; ATTEND Internal Medicine
DX: J18.9 Pneumonia, unspecified organism (principal); J96.01 Acute respiratory failure with hypoxia; E78.00 Pure hypercholesterolemia, unspecified; E03.9 Hypothyroidism, unspecified; D70.9 Neutropenia, unspecified; E11.65 Type 2 diabetes mellitus with hyperglycemia; I10 Essential (primary) hypertension; F41.9 Anxiety disorder, unspecified; F32.A Depression, unspecified; Z85.118 Personal history of other malignant neoplasm of bronchus and lung; Z88.0 Allergy status to penicillin; Z88.1 Allergy status to other antibiotic agents; Z88.8 Allergy status to other drugs, medicaments and biological substances; Z79.4 Long term (current) use of insulin; Z79.890 Hormone replacement therapy; Z86.16 Personal history of COVID-19; Z90.49 Acquired absence of other specified parts of digestive tract; Z86.711 Personal history of pulmonary embolism; Z79.01 Long term (current) use of anticoagulants
CPT/HCPCS: 0240U; 36415; 70450; 70450-26; 71275; 71275-26; 80048; 80053; 81003; 82803; 82947; 83605; 83880; 84484; 85025; 87040; 87428-QW; 93005; 93010; 94640; 94667; 99284; 99285; A9270-GY; J0456; J0692; J1815-GY; J3490; J7030; J7050; J7620-GY; Q9967